=== PATIENT | male | born 1945 | race Caucasian/White ===

== ENCOUNTER → 2020-08-09 12:42 | Outpatient (BNVA) | payer MEDICARE, SELFPAY | PROVIDERS: Family Provider Family Medicine; PCP Family Medicine; Visit Provider Family Medicine | DX: I10 Essential (primary) hypertension (principal); E78.5 Hyperlipidemia, unspecified; N42.1 Congestion and hemorrhage of prostate; N53.12 Painful ejaculation; Z12.5 Encounter for screening for malignant neoplasm of prostate | CPT/HCPCS: 80053; 80061; 85025; G0103 ==

== ENCOUNTER → 2023-07-02 09:08 | Outpatient (BNVA) | payer MEDICARE, SELFPAY | PROVIDERS: Family Provider Family Medicine; PCP Family Medicine; Visit Provider Family Medicine Adult Medicine | DX: R63.4 Abnormal weight loss (principal); I10 Essential (primary) hypertension; E78.5 Hyperlipidemia, unspecified; R73.9 Hyperglycemia, unspecified; I25.10 Atherosclerotic heart disease of native coronary artery without angina pectoris; Z98.61 Coronary angioplasty status | CPT/HCPCS: 80053; 80061; 83036; 84443; 85025; G0103 ==

== ENCOUNTER 2023-09-09 16:24 | Outpatient (CLI) | payer MEDICARE, SELFPAY ==
--- NOTE | 2023-09-09 17:00 | CT_ITS ---
WS: [id number] CT CHEST AND ABDOMEN WITHOUT CONTRAST HISTORY: weight loss TECHNIQUE: Axial imaging is performed through the chest and abdomen without IV. . Oral contrast. Sagi ttal and coronal reformats. All CT scans at [facility] use at least one of these dose optimiz ation techniques: automated exposure control; mA and/or kV adjustment per patient size (includes targ eted exams where dose is matched to clinical indication); or iterative reconstruction. CONTRAST: None DLP: 278.95 mGy.cm COMPARISON: 11/04/[address]: Moderate pulmonary hyperexpansion. No pulmonary mass or pneumonia. 5 mm nodule at the RIGHT lung base image 52 of series 4 was also present in 2016. New cluster of nodules at the LEFT lung base. Configu ration suggests scarring or atelectasis. No pericardial or pleural effusions. Heart size is normal. Moderate atherosclerotic plaque within the thoracic aorta. No aneurysm. Normal sized pulmonary artery. No adenopathy identified. Small hiatal hernia. Mild thoracic spondylitic changes. Abdomen CT: Noncontrast imaging through the abdomen. Negative appearance of the liver and spleen. Contracted gallbladder. No adrenal mass. RIGHT kidney is absent. Numerous parapelvic cysts are noted on the LEFT. No renal obstruction. Moderate atherosclero tic plaque aorta. Pancreas is atrophied. No mass or adenopathy or ascites is identified evaluation is very limited without IV and oral contrast There is mild stomach wall thickening near the fundus which was not present on the prior examination. Mild submucosal thickening of the duodenal C-loop. No obstructive pattern. Increased fecal material in the visualized transverse colon. L5 anterolisthesis by 10 mm. Bilateral L5 pars defects. IMPRESSION: 1. Chronic emphysema. No pulmonary mass identified. Mild nodularity at the LEFT lung base may be an a jasbir of atelectasis. This is new since 2016. Consider 6-month noncontrast chest CT follow-up. 2. No adenopathy. 3. RIGHT kidney is absent. 4. Mild stomach wall thickening and mucosal thickening towards the fundus of the stomach and into the duodenal C-loop. Consider gastritis. Neoplasm is not excluded. Endoscopy may be necessary. 5. CT examination is limited without IV contrast. 6. Atherosclerotic plaque aorta.
[2023-09-09] MEDS: iohexol 350 mg/mL 500 mL Btl (per mL) PO (17:11)
== END 2023-09-09 16:25 | disposition home or self-care (01) ==
PROVIDERS: PCP Family Medicine; Visit Provider Family Medicine Adult Medicine
DX: R63.4 Abnormal weight loss (principal); E11.9 Type 2 diabetes mellitus without complications; J43.9 Emphysema, unspecified; R91.8 Other nonspecific abnormal finding of lung field; R93.3 Abnormal findings on diagnostic imaging of other parts of digestive tract; Z87.891 Personal history of nicotine dependence; F10.90 Alcohol use, unspecified, uncomplicated
CPT/HCPCS: 71250; 74150; Q9967